=== PATIENT | male | born 1980 | race Caucasian/White ===

== ENCOUNTER → 2024-02-28 06:25 | Day surgery (SDC) | payer OTHER, SELFPAY | LOC: GI 06:25 | PROVIDERS: ATTENDING PHYSICIAN Internal Medicine Gastroenterology | DX: Z12.11 Encounter for screening for malignant neoplasm of colon (principal); Z83.719 Family history of colon polyps, unspecified; K64.8 Other hemorrhoids | CPT/HCPCS: G0105 ==

== ENCOUNTER → 2024-03-18 07:10 | Outpatient (REF) | payer OTHER, SELFPAY | LOC: RCS 07:10 | PROVIDERS: ATTENDING PHYSICIAN Internal Medicine Cardiovascular Disease; FAMILY PHYSICIAN Physician Assistant Medical | DX: Q87.40 Marfan syndrome, unspecified (principal) | CPT/HCPCS: 93306 ==

== ENCOUNTER → 2024-03-19 07:42 | Outpatient (REF) | payer OTHER, SELFPAY | LOC: PAVMRI 07:42 | PROVIDERS: ATTENDING PHYSICIAN Internal Medicine Cardiovascular Disease | DX: Q87.40 Marfan syndrome, unspecified (principal) | CPT/HCPCS: 71555; A9585 ==